=== PATIENT | male | born 1990 | race Two or more races ===

== ENCOUNTER 2016-07-15 13:02 | Emergency (ER) | payer SELFPAY ==
--- NOTE | ~2016-07-15 | ER ---
PATIENT'S NAME: ARTEM [facility] AGE: 25 Y [address] ROOM: [place] [address] LOCATION: [facility] ADMIT DATE: 07/15/2016 ER/Outpatient Report DISCHARGE DATE: 07/15/2016 FAMILY PHYSICIAN: PHYSICIAN, NO ATTENDING PHYSICIAN: Paul King Time of Patient's Arrival: 1302 hours. Time of Patient's Evaluation: 1315 hours. CHIEF COMPLAINT: Swelling, right hand; rash to his back and both feet. HISTORY OF PRESENT ILLNESS: This is a 25-year-old male who presents to the ER. He states he initially started having a rash to his feet and his hands and to his legs. He was evaluated at [facility] last week and was diagnosed with scabies. They did give him a cream to apply, that he did last week and then they told him to repeat that treatment again today and which he did. He states that he has noted some swelling of his right dorsal hand and wrist. He states he also has a patchy red rash to his torso. He states he has no shortness of breath, no cough, no fever or chills. He denies any environmental changes. He denies any other problems at this time. ALLERGIES: NO KNOWN ALLERGIES. MEDICATIONS: None. PAST MEDICAL HISTORY: Recent diagnosis of scabies. PAST SURGERIES: Appendectomy. SOCIAL HISTORY: Denies smoking use. Does drink alcohol on the weekends. REVIEW OF SYSTEMS: A 10-point review of systems was completed and was negative with the exception of those discussed in the HPI. PHYSICAL EXAMINATION: VITAL SIGNS: Weight 85.4 kg taken, blood pressure is 128/73, pulse 74, respirations 18, temperature is 99.5 degrees tympanically, and saturations 97% PATIENT'S NAME: MCGILL, [facility] AGE: 25 Y [address] ROOM: [place] [address] LOCATION: [facility] ADMIT DATE: 07/15/2016 ER/Outpatient Report DISCHARGE DATE: 07/15/2016 FAMILY PHYSICIAN: PHYSICIAN, NO ATTENDING PHYSICIAN: Paul King on room air. [place] Coma Score is 15. GENERAL: Alert, calm, well-developed male, in no acute distress. LUNGS: Clear to auscultation bilaterally. No wheeze or crackles. Normal respiratory effort. HEART: Regular rate and rhythm. No lifts, thrills, or murmurs. EXTREMITIES: No clubbing or cyanosis. He does have some slight swelling and erythema noted to the dorsal aspect of his right hand. He has full range of motion of all limbs. No tenderness over any bony aspect of his right hand. SKIN: He has hives noted to his right side of his torso. He also has erythema noted to his right hand and to his bilateral feet. He has several excoriated lesions to his feet, legs, arms. LABORATORY DATA AND X-RAYS: None were done. IMPRESSION: 1. Hives. 2. History of scabies. ASSESSMENT AND PLAN: I am going to cover him with the amount of excoriated lesions that he has with some Keflex to use as directed. I am also going to place him on prednisone p.o. to use as directed as well. He needs to do cool compresses to the skin and monitor it closely. Follow up with his primary care physician if needed. The patient understands and agrees with care. JESÚS BETANCOURT PA-C FOR DO KLAUDIA PIZARRO/jose /[id number] d: 07/15/[id number] t: 07/24/161936, OUTPATIENT REPORT
== END 2016-07-15 13:28 | disposition disaster alternative care site (69) ==
LOC: GMED 13:02
DX: L50.9 Urticaria, unspecified (principal); Z90.49 Acquired absence of other specified parts of digestive tract